=== PATIENT | female | born 1975 | race Caucasian/White ===

== ENCOUNTER → 2023-05-09 07:42 | Outpatient (CLI) | payer BC, SELFPAY ==
--- NOTE | 2023-05-09 07:45 | US_ITS ---
PROCEDURE: US TRANSVAGINAL CLINICAL INDICATION: PELVIC PAIN COMPARISON: No exams were available for comparison FINDINGS: Transvaginal and transabdominal sonographic images of the pelvis were obtained. UTERUS: 8.8 cm x 7.3 cmx 5.3 cm bulky and retroverted with a combined endometrial thickness of 21.8 mm. LEFT OVARY: 3.0 cmx1.8 cmx1.8cm with a volume of 5.1ml. There is a follicle measuring 2.0 x 1.3 x 1.8 cm. RIGHT OVARY: 8.8 cm x 6.3 cmx5.3 cm with a volume of 153ml. The right adnexa consists of a complex, heterogeneous mass. There appears to be flow within the mass. Doppler flow to both ovaries are seen. There is no fluid in the cul-de-sac. IMPRESSION: 1. Bulky retroverted uterus. 2. The endometrium is thickened at 21.8 mm. 3. The right ovary is enlarged with a mass measuring 8.8 cm. It is complex and heterogeneous. Dermoid is a possibility but there is no posterior shadowing. Cannot rule out a malignancy. 4. The left ovary has a small 2.0 cm follicle. 5. No fluid in the cul-de-sac 6. Suggest a gynecology consult. Dictated by: Slick Fierro MD 05/11/2023 11:34 Slick Fierro MD in [facility] 05/11/2023 11:34
--- NOTE | 2023-05-09 07:45 | US_ITS ---
FINAL REPORT CLINICAL HISTORY: RUQ PAIN COMPARISON: None FINDINGS: Sonographic images of the right upper quadrant were obtained. The pancreas is obscured. There are small foci of increased echogenicity in the liver that likely represent areas of focal fatty infiltration. There are several small echogenic foci contiguous with the wall of the gallbladder that do not change position, suggesting gallbladder polyps. There is a small amount of sludge present in the gallbladder as well. There is no evidence of biliary ductal dilatation.The common duct measures 3 mm. Limited images of the right kidney are unremarkable. IMPRESSION: Focal fatty infiltration of the liver. Gallbladder polyps and small amount of sludge without evidence of biliary ductal dilatation. Reviewed, Interpreted and Dictated by Escobar Perea MD Transcribed by Faye Richter Authenticated and . [facility]
[2023-05-09 10:26] LABS: Alanine Aminotransferase 33 U/L (12-78); Albumin Level 4.4 g/dl (3.5-5.0); Albumin/Globulin Ratio 1.6 (1.1-1.8); Alkaline Phosphatase 96 U/L (38-126); Anion Gap 12.9 mEq/L (5-15); Aspartate Amino Transferase 33 U/L (14-36); Bilirubin,Total 0.4 mg/dl (0.2-1.3); Blood Urea Nitrogen 10 mg/dl (7-17); Calcium 9.5 mg/dl (8.4-10.2); Carbon Dioxide 29 mmol/L (22.0-30.0); Chloride 102 mmol/L (98-107); Cholesterol 193 mg/dl (140-200); Estimated Glomerular Filt Rate 76 ml/min (>60); GFR (African American) 92 ML/MIN (>60); Globulin 2.7 g/dL (1.3-3.2); Glucose 96 mg/dl (74-100); HDL Cholesterol 48 mg/dl (40-60); Potassium 3.9 mmoL/L (3.5-5.1); Sodium 140 mmol/L (136-145); Total Protein,Serum 7.1 g/dl (6.3-8.2); Triglycerides 51 mg/dl (30-150); VLDL Cholesterol 10 mg/dL (0-40)
[2023-05-09 10:36] LABS: Direct LDL Cholesterol 111.86 mg/dL (100-129)
[2023-05-09 10:42] LABS: Free T4 (Free Thyroxine) 0.97 ng/dl (0.78-2.19)
[2023-05-09 10:44] LABS: 25-OH Vitamin D, Total 21.7 ng/mL (30-100)
[2023-05-09 10:57] LABS: Thyroid Stimulating Hormone 1.95 uIU/mL (0.465-4.68)
[2023-05-09 11:16] LABS: Vitamin B12 196 pg/mL (239-931)
[2023-05-09 14:19] LABS: Iron 73 ug/dL (37-170)
[2023-05-10 10:41] LABS: FSH 66.3 mIU/mL (.); LH 43.2 mIU/mL (.)
== END ==
LOC: RAD 07:42
PROVIDERS: PCP Family Medicine; Visit Provider Physician Assistant
DX: R10.11 Right upper quadrant pain (principal); R10.2 Pelvic and perineal pain
CPT/HCPCS: 36415; 76705; 76830; 80053; 80061; 82306; 82607; 83001; 83002; 83540; 84439; 84443

== ENCOUNTER 2024-07-21 08:17 | Outpatient (CLI) | payer BC, SELFPAY ==
--- NOTE | 2024-07-21 08:20 | MM_ITS ---
PROCEDURE INFORMATION: Exam: MG Bilateral Screening 3D Mammography Exam date and time: 07/21/2024 8:30 AM Age: 48 years old Clinical indication: Screening examination TECHNIQUE: Imaging protocol: Bilateral Screening tomosynthesis and 2D mammography including computer-aided detection (CAD) when performed. COMPARISON: No relevant prior studies available. FINDINGS: MAMMOGRAPHY: Breast composition: There are scattered areas of fibroglandular density. Mass: None. Architectural distortion: None. Calcifications: No suspicious calcifications. Asymmetric density: None. Skin thickening: None. Axillary adenopathy: None. IMPRESSION: No mammographic evidence of malignancy. Annual screening is recommended unless otherwise clinically indicated. ASSESSMENT: BI-RADS Category 1: Negative.
== END 2024-07-21 23:59 | disposition home or self-care (01) ==
LOC: RAD 08:18
PROVIDERS: PCP Family Medicine; Visit Provider Family Medicine
DX: Z12.31 Encounter for screening mammogram for malignant neoplasm of breast (principal)
CPT/HCPCS: 77063; 77067